=== PATIENT | female | born 1985 | race Caucasian/White ===

== ENCOUNTER → 2016-10-19 | Outpatient (CLI) | payer BC ==
--- NOTE | 2016-10-20 08:16 | MRI ---
Procedure: MR LUMBAR SPINE WITHOUT IV CONTRAST, MR THORACIC SPINE WITHOUT IV CONTRAST Exam Date: 10/19/2016 10:05 AM CDT Ordering Provider: ROMAN BURGOS MD Clinical Indication: LOW BACK PAIN Comparison: None Technique: Multiplanar, multisequence MR images of the lumbar spine were obtained. Findings: No evidence of vertebral body compression deformity or acute fracture. No scoliotic curvature identified.. Spinal cord terminates at the superior endplate of L1 and is normal in signal morphology. Cauda equina separate appropriately. T12-L1: Unremarkable. L1-L2: Unremarkable. L2-L3: Unremarkable. L3-L4: Unremarkable. L4-L5: Unremarkable. L5-S1: Diffuse disc bulge with superimposed 3 mm central/left paracentral disc protrusion. No stenosis. There is mild facet arthrosis. Prevertebral and paravertebral soft tissues are unremarkable. Impression: Mild degenerative disc changes at L5-S1 without spinal canal or foraminal stenosis. Otherwise, unremarkable lumbar spine MRI. Procedure: MR LUMBAR SPINE WITHOUT IV CONTRAST, MR THORACIC SPINE WITHOUT IV CONTRAST Exam Date: 10/19/2016 10:05 AM CDT Ordering Provider: ROMAN BURGOS MD Clinical Indication: Mid BACK PAIN Comparison: None Technique: Multiplanar MRI of the thoracic spine was obtained without the intravenous administration of contrast medium. Findings: There is normal signal within the marrow of the thoracic vertebral bodies. There is no marrow signal abnormality to suggest fracture or neoplasm. The intervertebral disc spaces are of normal signal characteristics. Disc desiccation at T8-T9 with a small diffuse disc bulge. Otherwise, disc hydration is maintained. No spinal canal or foraminal stenosis. The thoracic spinal cord is of normal signal and contour. The conus is of normal signal and contour and terminates at the L1 level. There is no paraspinal mass. There is no prevertebral fluid collection. Impression: Mild degenerative disc changes at T8-T9 as above. No spinal canal or foraminal stenosis. Otherwise, unremarkable MRI of the thoracic spine. Electronically signed by: Toni Spears MD 10/20/2016 8:15 AM CDT
== END | disposition home or self-care (01) ==
LOC: MRI 09:48
PROVIDERS: ATTEND Family Medicine
DX: M47.896 Other spondylosis, lumbar region (principal)

== ENCOUNTER → 2019-03-18 | Outpatient (CLI) | payer OTHER ==
--- NOTE | 2019-03-18 12:08 | RAD ---
EXAM DESCRIPTION: Knee,Left Complete CLINICAL HISTORY: 33 years, Female, SPRAIN OF LEFT KNEE COMPARISON: None TECHNIQUE: Three views of the left knee FINDINGS: No fracture or dislocation. Bones appear normally mineralized with normal trabecular pattern. Normal appearance of medial and lateral compartments on frontal view. Lateral view shows normal position of the patella. No patellar spurring or enthesopathy. No suprapatellar knee joint effusion. Normal contour of quadriceps and patellar tendons. No abnormal patellar tilt or subluxation on patellar sunrise view. IMPRESSION: Negative for fracture or dislocation. Electronically signed by: Randy Oliva MD 03/18/2019 12:07 PM [facility]
== END | disposition home or self-care (01) ==
LOC: RAD 09:48
PROVIDERS: ATTEND Nurse Practitioner
DX: M25.562 Pain in left knee (principal)

== ENCOUNTER → 2019-03-24 | Outpatient (CLI) | payer OTHER ==
--- NOTE | 2019-03-25 11:48 | MRI ---
Study: MRI of the Left Knee. Indication: Sprain of left knee Technique: Multiplanar, multi sequence MRI of the left knee was obtained without intravenous contrast. Comparison: None. Findings: ACL, PCL, MCL, and lateral collateral ligament complex intact. Mild degenerative signal posterior horn and body medial meniscus without tear. Free edge fraying body lateral meniscus. Subtle areas of grade 1 and 2 chondrosis of the medial and lateral knee compartments without full-thickness chondral defect. Moderate subcutaneous edema about the anterolateral aspects of the knee with mild prepatellar bursitis. Small knee effusion. No acute fracture. Patellofemoral extensor mechanism intact. Trace lateral patellar tilt and subluxation. TT-TG distance measures 15 mm. Subtle grade 2 chondral fibrillation central aspect medial patellar facet. Minimal grade 1/2 chondrosis of the medial femoral trochlea. Impression: Degenerative signal medial meniscus without tear. Free edge fraying body lateral meniscus. Grade 1-2 chondrosis medial and lateral knee compartments. Anterior subcutaneous edema with mild prepatellar bursitis. 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 Small knee effusion. Electronically signed by: Devin Sweet MD 03/25/2019 11:47 AM [facility]
== END ==
LOC: MRI 12:46
PROVIDERS: ATTEND Nurse Practitioner
DX: S83.92XA Sprain of unspecified site of left knee, initial encounter (principal); S83.002A Unspecified subluxation of left patella, initial encounter; M71.862 Other specified bursopathies, left knee; M22.42 Chondromalacia patellae, left knee